=== PATIENT | female | born 1995 | race Caucasian/White ===

== ENCOUNTER 2017-05-30 15:22 | Emergency (ER) | payer OTHER ==
[2017-05-30] MEDS ORDERED: GLUCOSE LIQUID 30 GM TUBE PO ONE (15:45)
[2017-05-30] MEDS ORDERED: ALBUTEROL 0.083% 2.5 MG/3 ML VIAL.NEB INHALATION ONE (15:45)
--- NOTE | 2017-05-30 15:54 | RADIOLOGY REPORT ---
HISTORY: Shortness of breath. Family history of clotting disorder. COMPARISON: None. TECHNIQUE: Chest PA and lateral. FINDINGS: The lungs are clear. Cardiac silhouette is normal in size. Pulmonary vasculature is within normal limits. There are no pleural effusions. IMPRESSION: No acute cardiopulmonary disease. Final Electronic Signature: This report was electronically signed by Lincoln Ramirez MD, FACR on 3:52 PM. jay /
--- NOTE | 2017-05-30 16:57 | ER NURSING DOCUMENTATION ---
Nurse's Notes [facility] Name:Maynor Prado Age:21 yrs Sex:Female :1995 Arrival Date:05/30/2017 Time:15:22 Bed4 Private MD: Diagnosis:Acute Pulmonary Edema Presentation: 05/30 15:24 Presenting complaint: EMS states: hike [place] today and was descending and became cb symptomatic. Transition of care: Other RMNP. Notified ED Physician of patient's arrival and CC Dr. Mahan notified. Care prior to arrival: IV initiated. gauge and site 20G via R AC Saline lock initiated. Glucose check. 74 Med neb given. IV Fluids given by EMS NS 1000 ml Medication(s) given: Albuterol Neb Labs. Activity prior to arrival: finished hike was in parking lot, actually got to the [place]. 15:24 Method Of Arrival: EMS: 420 cb 15:24 Acuity: MAGO 3 cb Triage Assessment: 15:30 General: Appears in no apparent distress, uncomfortable, well groomed, Behavior is cb cooperative. Pain: Denies pain. Neuro: Level of Consciousness is awake, alert, Oriented to person, place, time, event. Cardiovascular: Rhythm is sinus tachycardia. Respiratory: Airway is patent Trachea midline Respiratory effort is even, labored, Respiratory pattern is regular, symmetrical, Breath sounds are clear bilaterally. Reports cough that is dry, consistent. 15:30 Respiratory: Onset: The symptoms/episode began/occurred today, the patient has moderate cb shortness of breath. 16:01 GI: Reports tolerance of fluids, tolerance of food. : No deficits noted. Derm: No cb deficits noted. Musculoskeletal: No deficits noted. Historical: - Allergies: SULFA (SULFONAMIDES); - PMHx: Pneumonia; tacycardia ; - Tetanus: < 10 years. - Ebola Screening: : Patient negative for fever greater than or equal to 101.5 degrees Fahrenheit, and additional compatible Ebola Virus Disease symptoms. Patient denies exposure to infectious person. Patient denies travel to an Ebola-affected area in the 21 days before illness onset. No symptoms or risks identified at this time. . - Immunization history: Pneumococcal vaccine status is unknown, Flu Vaccine None. - Social history: Smoking status: Patient states was never smoker of tobacco. - Family history: Mother has/had blood clots . Maternal Grandmother has/had Blood clots. Screenin:01 Infectious Disease Risk None. Abuse screen: Denies threats or abuse. Denies injuries cb from another. Nutritional screening: On allergic to milk and eggs. Assessment: 15:40 Cardiovascular: Rhythm is sinus tachycardia. cb Vital Signs: 15:25 BP 100 / 60; Pulse 115; Resp 18; Temp 99.7(TE); Pulse Ox 100% on Nebulizer; Weight cb 61.23 kg; Height 5 ft. 5 in. (165.10 cm); Pain 0/10; 15:29 BP 81 / 57 (auto/); cb 15:30 Pulse 115 MON; Resp 25; cb 15:41 BP 99 / 56 (auto/); cb 15:45 BP 98 / 66 (auto/); cb 15:45 Pulse Ox 97% on R/A; cb 15:50 Pulse Ox 99% on R/A; cb 16:24 BP 103 / 63 (auto/); cb 16:25 Pulse Ox 98% on R/A; cb 15:25 Body Mass Index 22.46 (61.23 kg, 165.10 cm) cb ED Course: 15:23 Patient arrived in ED. arc 15:23 Pema Sandra, KELECHI is Primary Nurse. cb 15:25 Luca Mahan MD is Attending Physician. tl1 15:29 Triage completed. cb 15:30 Patient moved to radiology. pm1 15:33 Labs drawn. By EMS Sent per order to lab. Maintain field IV. Dressing intact. Good cb blood return noted. Site clean & dry. Gauge & site: 20 G via R AC. 15:40 Valuables Remains with patient Patient has correct armband on for positive cb identification. Bed in low position. Call light in reach. Side rails up X2. Adult w/ patient. 15:40 Cardiac Monitoring On for Nurse Monitoring only. Pulse Ox - RN Monitoring Only NIBP On cb - RN Monitoring Only. 15:42 Patient moved back from radiology. pm1 16:12 Diet: Patient given juice. cb Administered Medications: 16:00 Drug: NS 0.9% 1000 ml; Route: IV; Rate: bolus; Site: right antecubital; cb 16:50 Follow up: IV Status: Completed infusion; IV Intake: 1000ml cb Intake: 16:50 IV: 1000ml; Total: 1000ml. cb Outcome: 16:16 Discharge ordered by . tl1 16:50 Discharged to home ambulatory, with friend. cb 16:50 Condition: good 16:50 Discharge Assessment: Patient awake, alert and oriented x 3. No cognitive and/or functional deficits noted. Patient verbalized understanding of disposition instructions. 16:50 Discharge instructions given to patient, Instructed on discharge instructions, follow up and referral plans. medication usage, Demonstrated understanding of instructions, medications, Prescriptions given X 1. 16:56 Patient left the ED. cb 05/31 13:07 Discharge F/U Call: Unable to reach: no answer lc Signatures: Pema Sandra, RN RN Alyse Oliva RN RN lc Inocencio Abdullahi pm1 Luca Mahan MD MD tl1 Melani Henry, Reg Reg arc
--- NOTE | 2017-06-01 16:57 | ER PHYSICIAN DOCUMENTATION ---
Physician Documentation [facility] Name:Maynor Prado Age:21 yrs Sex:Female :1995 Arrival Date:05/30/2017 Time:15:22 Bed4 Private MD: Luca Dangelo Disposition: 06/01 01:41 Critical Care: not applicable. Chart complete. tl1 Disposition: 05/30/17 16:16 Discharged to Home/Self Care. Impression: Acute Pulmonary Edema. - Condition is Good. - Discharge Instructions: PULMARY EDEMA - CHF, Left Sided. - Prescriptions for Tessalon Perles 100 mg Oral Capsule - take 1 capsule by ORAL route every 8 hours As needed; 15 capsule. - Medical Reconciliation form form. - Follow up: Private Physician; When: As needed; Reason: Recheck today's complaints. - Problem is new. - Symptoms have improved. HPI: 05/30 15:30 This 21 yrs old Female presents to ER via EMS with complaints of Breathing tl1 Difficulty. 15:30 The patient has shortness of breath at rest. She is here visiting from [place]. She tl1 was well today while [place], until she got [place], when she developed a persistent dry cough and mild dyspnea. No chest pain, fever, hemoptysis, leg swelling or wheezing. No h/o asthma. She feels somewhat better on arrival to the ED after a duoneb treatment en route. . Historical: - Allergies: SULFA (SULFONAMIDES); - PMHx: Pneumonia; tacycardia ; - Tetanus: < 10 years. - Ebola Screening: : Patient negative for fever greater than or equal to 101.5 degrees Fahrenheit, and additional compatible Ebola Virus Disease symptoms. Patient denies exposure to infectious person. Patient denies travel to an Ebola-affected area in the 21 days before illness onset. No symptoms or risks identified at this time. . - Immunization history: Pneumococcal vaccine status is unknown, Flu Vaccine None. - Social history: Smoking status: Patient states was never smoker of tobacco. - Family history: Mother has/had blood clots . Maternal Grandmother has/had Blood clots. ROS: 15:40 Respiratory: Positive for cough, shortness of breath, Negative for hemoptysis, tl1 pleurisy, wheezing. 15:40 All other systems are negative. Exam: 15:40 Head/Face: Normocephalic, atraumatic. tl1 Eyes: Pupils equal round and reactive to light, extra-ocular motions intact. Lids and lashes normal. Conjunctiva and sclera are non-icteric and not injected. Cornea within normal limits. Periorbital areas with no swelling, redness, or edema. ENT: Nares patent. No nasal discharge, no septal abnormalities noted. Tympanic membranes are normal and external auditory canals are clear. Oropharynx with no redness, swelling, or masses, exudates, or evidence of obstruction, uvula midline. Mucous membranes moist. Neck: Trachea midline, no thyromegaly or masses palpated, and no cervical lymphadenopathy. Supple, full range of motion without nuchal rigidity, or vertebral point tenderness. No Meningismus. 15:40 Chest/axilla: Normal chest wall appearance and motion. Nontender with no deformity. tl1 No lesions are appreciated. 15:40 Constitutional: The patient appears in no acute distress, alert, awake, non-diaphoretic, non-toxic, well developed, well hydrated, well groomed, well nourished, uncomfortable, with a persistent intermittent dry cough 15:40 Cardiovascular: Rate: tachycardic, Rhythm: regular, Heart sounds: normal, Edema: is not appreciated, JVD: is not appreciated. 15:40 Respiratory: the patient does not display signs of respiratory distress, Respirations: normal, Breath sounds: are normal, no decreased breath sounds, no rales, rhonchi, no stridor, no wheezing. 15:40 Abdomen/GI: Palpation: abdomen is soft and non-tender. 15:40 Musculoskeletal/extremity: Exam is negative for acute changes. 15:40 Skin: Exam negative for acute changes. 15:40 Neuro: Exam negative for acute changes. Vital Signs: 15:25 BP 100 / 60; Pulse 115; Resp 18; Temp 99.7(TE); Pulse Ox 100% on Nebulizer; Weight cb 61.23 kg; Height 5 ft. 5 in. (165.10 cm); Pain 0/10; 15:29 BP 81 / 57 (auto/); cb 15:30 Pulse 115 MON; Resp 25; cb 15:41 BP 99 / 56 (auto/); cb 15:45 BP 98 / 66 (auto/); cb 15:45 Pulse Ox 97% on R/A; cb 15:50 Pulse Ox 99% on R/A; cb 16:24 BP 103 / 63 (auto/); cb 16:25 Pulse Ox 98% on R/A; cb 15:25 Body Mass Index 22.46 (61.23 kg, 165.10 cm) cb MDM: 15:25 Patient medically screened. tl1 15:40 Differential diagnosis: asthma, Bronchitis CHF exacerbation, pneumonia, Pneumothorax tl1 pulmonary edema, Pulmonary Embolism reactive airway disease, HAPE. Antibiotic administration: Not indicated. The patient's pulmonary embolism risk score was calculated as follows: No Risks (0 Pts). Data reviewed: vital signs, nurses notes, lab test result(s), D DIMER, radiologic studies, plain films, and as a result, I will discharge patient. Data interpreted: Pulse oximetry: on room air is 98 %. Test interpretation: by ED physician or midlevel provider: plain radiologic studies. Counseling: I had a detailed discussion with the patient and/or guardian regarding: the historical points, exam findings, and any diagnostic results supporting the discharge/admit diagnosis, lab results, radiology results, the need for outpatient follow up, to return to the emergency department if symptoms worsen or persist or if there are any questions or concerns that arise at home. ED course: She remained somewhat tachycardic, but subjectively was feeling quite a bit better. I told her that she could have a bit of mountain sickness, with perhaps some mild HAPE that was not really apparent on her CXR. No other plausible explanation at this time. I advised her that she should sleep at as low an altitude as possible tonight and to be very careful, and descend immediately if she has any recurrence of symptoms when she goes to [place] tomorrow.. 05/30 15:47 Order name: DDIMER; Complete Time: :14 EDMS 06/01 01:14 Interpretation: Normal: DDIMER < 200. tl1 05/30 15:56 Order name: CXR 2V [id number]; Complete Time: 01:14 EDMS 06/01 01:14 Interpretation: Normal: NAD. SEE RADIOLOGIST REPORT. tl1 Dispensed Medications: 16:00 Drug: NS 0.9% 1000 ml; Route: IV; Rate: bolus; Site: right antecubital; cb 16:50 Follow up: IV Status: Completed infusion; IV Intake: 1000ml cb Signatures: Pema Sandra, RN RN cb Luca Mahan MD MD tl1
== END 2017-05-30 16:57 | disposition home or self-care (01) ==
LOC: ER 15:22
DX: R06.02 Shortness of breath (principal); T70.29XA Other effects of high altitude, initial encounter; R05 Cough; R00.0 Tachycardia, unspecified; Z99.89 Dependence on other enabling machines and devices; Z74.3 Need for continuous supervision
CPT/HCPCS: 71020; 85379; 96360; 99284; A0425; A0427; J7613